=== PATIENT | female | born 1995 | race Caucasian/White ===

== ENCOUNTER → 2018-02-09 | Emergency (ER) | payer OTHER ==
[~2018-02-09] VITALS: Ht 160 cm; Wt 68.0 kg
[~2018-02-09] MED LIST: ALLEGRA ALLERG180 MG PO; BETAMETHASONE D15 G2 TOP; KETO10TA2 PO; MEDROL8 MG PO; MOTRIN800 MG PO
== END | disposition home or self-care (01) ==
LOC: ER 20:50
DX: L30.8 Other specified dermatitis (principal); T50.995A Adverse effect of other drugs, medicaments and biological substances, initial encounter; Y92.89 Other specified places as the place of occurrence of the external cause

== ENCOUNTER 2021-11-03 14:34 | Emergency (ER) | payer OTHER ==
[~2021-11-03] VITALS: Ht 160 cm; Wt 71.7 kg
[2021-11-03] MEDS ORDERED: MEDROLPACK PO (17:56)
== END 2021-11-03 18:03 | disposition home or self-care (01) ==
LOC: ER 14:34
DX: S80.861A Insect bite (nonvenomous), right lower leg, initial encounter (principal); W57.XXXA Bitten or stung by nonvenomous insect and other nonvenomous arthropods, initial encounter; Y92.89 Other specified places as the place of occurrence of the external cause